=== PATIENT | male | born 2005 | race African-American/Black ===

== ENCOUNTER 2024-09-02 14:37 | Emergency (ER) | payer OTHER, SELFPAY ==
--- NOTE | 2024-09-02 14:50 | ED_ITS ---
HPI - Epistaxis General Chief complaint: Epistaxis Stated complaint: NOSEBLEED Time Seen by Provider: 09/02/24 14:41 Source: patient Mode of arrival: ambulatory Limitations: no limitations History of Present Illness HPI Narrative: Patient is a 18-year-old male who presents with 3 spontaneous nosebleeds today. Patient cold symptoms 1-2 weeks ago and was hit while playing basketball earlier this week Which was the initial nosebleed. Denies any active bleeding at this time. States the nosebleeds last 3-5 minutes and is not a lot of blood. States they start after blowing nose. Did use normal saline when having cold symptoms. Related Data Home Medications ?Medication ?Instructions ?Recorded ?Confirmed ?Last Taken ?Type cetirizine 10 mg disintegrating 10 mg PO DAILY 09/02/24 09/02/24 Unknown History tablet Allergies Allergy/AdvReac Type Severity Reaction Status Date / Time No Known Allergies Allergy Verified 09/02/24 14:53 Review of Systems Review of Systems: All systems reviewed & are unremarkable except as noted in HPI and below Constitutional: Constitutional: Denies body ache(s), Denies chills, Denies fatigue, Denies fever(s), Denies headache(s), Denies malaise and Denies weakness Eyes: Eyes: Denies blurry vision, Denies irritation and Denies loss of vision ENT: Denies otalgia, Denies headache(s), Reports epistaxis, Denies nasal discharge, Denies sinus pain and Denies sore throat Cardiovascular: Cardiovascular: Denies chest pain, Denies irregular heart rhythm and Denies dyspnea Respiratory: Respiratory: Denies dyspnea Gastrointestinal: Gastrointestinal: Denies abdominal pain, Denies melena, Denies hematochezia, Denies diarrhea, Denies nausea and Denies vomiting Musculoskeletal: Musculoskeletal: Denies back pain, Denies myalgias and Denies arthralgias Integumentary/Breasts: Skin/Breast: Denies pruritus and Denies rash Neurologic: Denies headache(s), Denies loss of vision and Denies weakness Psychiatric: Psychiatric: Reports no additional psychiatric complaints Endocrine: Endocrine: Denies fatigue PMFSH Comments At time of signature, agree with nursing past medical, surgical, social and family history. There is no relevant family history pertinent to the presenting complaint. Exam Const: General: cooperative, healthy appearing, comfortable, no acute distress and well nourished Nutritional Appearance: well nourished Orientation/consciousness: patient oriented x3 Limitations: no limitations HENMT: Head: normal to inspection, normocephalic and atraumatic Ears: hearing grossly normal bilaterally and external ears normal Face/Nose/Sinus: Normal external nose present, Abnormal mucous membranes and turbinates present erythematous bilateral, no epistaxis, normal facial exam, face symmetric, erythema and sinus tenderness Face and sinus: normal facial exam and face symmetric Mouth: Yes lip normal Eyes: General: appearance normal, both eyes and all related structures Alignment and Position: alignment normal and position normal Periorbital: periorbital findings normal Eyelids: eyelids normal Pupils: Equal, round and reactive pupils present EOM: EOMs intact bilaterally Neck: Neck: normal visual inspection, full ROM and supple Chest: Chest palpation & inspection: normal inspection of the chest Resp: Effort & Inspection: normal respiratory effort and able to speak in complete sentences Auscultation: clear to auscultation bilaterally Cardio: Rate: regular rate Rhythm: regular rhythm Heart sounds: S1 normal heart sound present and S2 normal heart sound present GI: Inspection: normal to inspection Skin: General skin exam: normal color and no rashes or lesions noted Neuro: General: patient oriented x3 and moves all extremities Cranial nerves: Yes Equal, round and reactive pupils present Speech: normal speech Gait exam (Neuro): Normal gait present Extrem: General: normal to inspection, full ROM and no edema Psych: Appearance: grossly normal and well kempt Mental Status: mental status grossly normal Speech and movement: Normal speech and movement present Affect: normal affect Attitude: cooperative Thought process: Normal thought process present Course Course Emergency Course: Patient is aware of diagnosis, understands and agrees to treatment plan. Anticip atory guidance given. Patient agrees to follow-up as directed and is aware of reasons to seek care at the emergency department. Portions of this record may have been created with voice recognition software Level of Care: Express Care Visit Vital Signs Vital signs: Vital Signs Temperature 36.6 C 09/02/24 14:55 Pulse Rate 70 09/02/24 14:55 Respiratory Rate 16 09/02/24 14:55 Blood Pressure 128/77 09/02/24 14:55 Pulse Oximetry 99 09/02/24 14:55 Oxygen Delivery Room Air 09/02/24 14:55 Temperature 36.6 C 09/02/24 14:55 Pulse Rate 70 09/02/24 14:55 Respiratory Rate 16 09/02/24 14:55 Blood Pressure 128/77 09/02/24 14:55 Pulse Oximetry 99 09/02/24 14:55 Oxygen Delivery Room Air 09/02/24 14:55 Reviewed MDM - Epistaxis MDM Narrative Medical decision making narrative: Discussed limiting nose blowing as much as possible for the next few weeks. Discussed saline spray use and Afrin as needed for nose bleeds. Pt well hydrated appearing, in no respiratory distress, hemodynamically stable. Recommend supportive care. The patient is stable at time of discharge the clinical impression was discussed and the patient was given the opportunity to ask questions, which were addressed as completely as possible given the information available at present. Anticipatory guidance and return to care precautions were discussed and the importance of primary care follow-up was stressed and encouraged. The patient voiced understanding of the plan, indications to return, and the need for follow-up. Exam findings show no acute concerns or changes Patient is appropriate for outpatient treatment and follow-up. Differential Diagnosis Differential diagnosis: Likely nasal bone fracture, anterior epistaxis and posterior epistaxis Discharge Plan Discharge Clinical Impression: Epistaxis Patient Disposition: Home, Self-Care Condition: Stable Instructions: Nosebleed (ED) Additional Instructions: First aid: Sit up and lean forward. This will help prevent you from swallowing blood. Spit blood and saliva into a bowl. Apply pressure to your nose. Use 2 fingers to pinch your nose shut for 10 Apply ice on the bridge of your nose to decrease swelling and bleeding. Use a cold pack or put crushed ice in a plastic bag. Cover it with a towel to protect your skin. Pack your nose with a cotton ball, tissue, tampon, or gauze bandage to stop the bleeding. Medicines: Saline Nasal spray use throughout the day to keep passages moist. You may use Affrin [place] into your nose up to 3 days. Do not pick or blow your nose for at least a week. You can irritate or damage your nose if you pick it. Blowing your nose too hard may cause the bleeding to start again. Do not bend over or strain as this can cause the bleeding to start again. Go to the emergency department if: Your nasal packing is soaked with blood. Your nose is still bleeding after 20 minutes, even after you pinch it. You have a foul-smelling discharge coming out of your nose. You feel so weak and dizzy that you have trouble standing up. You have trouble breathing or talking. Patient Language: Ken[place] Prescriptions: New fluticasone propionate [Flonase Allergy Relief] 50 mcg/actuation spray,suspension 1 spray intranasal DAILY Qty: 16 0RF Rx Instructions: administer into each nostril No Action cetirizine 10 mg tablet,disintegrating 10 mg PO DAILY Follow-up/Referrals: Jeremy Vilchis MD [Physician] - 3 Days ([facility] care) Time of Disposition: 15:44
[2024-09-02 14:55] VITALS: BP 128/77; PULSE 70; RESP 16; TEMP 36.6; O2SAT 99
== END 2024-09-02 15:52 | disposition home or self-care (01) ==
PROVIDERS: Emergency Provider Nurse Practitioner Family
DX: R04.0 Epistaxis (principal)
CPT/HCPCS: 99213; G0463